=== PATIENT | male | born 2000 | race American Indian/Alaskan Native ===

== ENCOUNTER 2019-11-01 14:30 | Emergency (ER) | payer SELFPAY ==
[2019-11-01 14:41] VITALS: BP 132/81
--- NOTE | 2019-11-01 16:27 | Event Note ---
ED Screening Note ED Screening Note: sore throat that began a week ago states that it hurts to swallow no fever able to swallow spit went to [facility], was prescribed an abx but did not get it filled PMHx asthma, sickle cell trait allergy: penicillin-rash
--- NOTE | 2019-11-01 16:30 | Emergency Department Report ---
ED ENT HPI - General Chief complaint: Sore Throat Stated complaint: SOB/HEAD HURTING/CP Time Seen by Provider: 11/01/19 16:22 Source: patient Mode of arrival: Ambulatory Limitations: No Limitations - History of Present Illness Initial comments: pt is a 19 yo male who presents to the ED with c/o a sore throat that began a week ago. he states that it hurts to swallow. he denies any fever. he went to [facility], was prescribed an abx but did not get it filled, was prescribed clindamycin. he states he had a CT of the neck there which was normal. he states it was initially getting better but then his throat began hurting him again because he did not fill his abx. PMHx asthma, sickle cell trait. allergy: penicillin-rash - Related Data Previous Rx's Medication Instructions Recorded Last Taken Type Clindamycin [Clindamycin CAP] 450 mg PO TID 7 Days #63 capsule 11/01/19 Unknown Rx Allergies Allergy/AdvReac Type Severity Reaction Status Date / Time Penicillins Allergy Unknown Verified 11/01/19 14:37 ED Dental HPI - General Chief complaint: Sore Throat Stated complaint: SOB/HEAD HURTING/CP Time Seen by Provider: 11/01/19 16:22 Source: patient Mode of arrival: Ambulatory Limitations: No Limitations - Related Data Previous Rx's Medication Instructions Recorded Last Taken Type Clindamycin [Clindamycin CAP] 450 mg PO TID 7 Days #63 capsule 11/01/19 Unknown Rx Allergies Allergy/AdvReac Type Severity Reaction Status Date / Time Penicillins Allergy Unknown Verified 11/01/19 14:37 ED Review of Systems ROS: Stated complaint: SOB/HEAD HURTING/CP Other details as noted in HPI Comment: All other systems reviewed and negative ED Past Medical Hx - Past Medical History Previous Medical History?: No - Surgical History Past Surgical History?: No - Social History Smoking Status: Never Smoker Substance Use Type: Alcohol, Marijuana - Medications Home Medications: Home Medications Medication Instructions Recorded Confirmed Last Taken Type Clindamycin [Clindamycin CAP] 450 mg PO TID 7 Days #63 capsule 11/01/19 Unknown Rx ED Physical Exam - General Limitations: No Limitations General appearance: alert, in no apparent distress - Head Head exam: Present: atraumatic, normocephalic - Eye Eye exam: Present: normal appearance - ENT ENT exam: Present: mucous membranes moist, other (posterior oropharynx erythema with bilaterally tonsillar hypertrophy, no obvious exudate, no uvular edema, no deviation of the uvula, uvula is midline) - Respiratory Respiratory exam: Present: normal lung sounds bilaterally. Absent: respiratory distress, wheezes, rales, rhonchi, stridor, chest wall tenderness, accessory muscle use, decreased breath sounds, prolonged expiratory - Cardiovascular Cardiovascular Exam: Present: regular rate, normal rhythm, normal heart sounds. Absent: systolic murmur, diastolic murmur, rubs, gallop - Neurological Exam Neurological exam: Present: alert, oriented X3 - Psychiatric Psychiatric exam: Present: normal affect, normal mood - Skin Skin exam: Present: warm, dry, intact ED Course Vital Signs 11/01/19 14:38 Temperature 97.7 F Pulse Rate 85 Respiratory 16 Rate Blood Pressure 132/81 O2 Sat by Pulse 97 Oximetry ED Medical Decision Making - Medical Decision Making pt is a 19 yo male who presents to the ED with c/o a sore throat that began a week ago. he states that it hurts to swallow. he denies any fever. he went to [facility], was prescribed an abx but did not get it filled, was prescribed clindamycin. he states he had a CT of the neck there which was normal. he states it was initially getting better but then his throat began hurting him again because he did not fill his abx. PMHx asthma, sickle cell trait. allergy: penicillin-rash. vitals are normal. on exam: posterior oropharynx erythema with bilaterally tonsillar hypertrophy, no obvious exudate, no uvular edema, no deviation of the uvula, uvula is midline. Examination consistent with tonsillitis. given prescription for clindamycin. advised pt to please take medication as prescribed to completion. increase your water intake. may alternate tylenol and ibuprofen as needed for pain. do warm salt water gargles, may use over the counter throat spray. follow up with a primary care doctor in the next 2-3 days. return to the emergency room for any new or worsening symptoms. - Differential Diagnosis tonsillitis, strep throat, peritonsillar abscess, epiglottitis, sialoadenit Critical care attestation.: If time is entered above; I have spent that time in minutes in the direct care of this critically ill patient, excluding procedure time. ED Disposition Clinical Impression: Tonsillitis Disposition: DC-01 TO HOME OR SELFCARE Is pt being admited?: No Does the pt Need Aspirin: No Condition: Stable Instructions: Tonsillitis (ED) Additional Instructions: please take medication as prescribed to completion. increase your water intake. may alternate tylenol and ibuprofen as needed for pain. do warm salt water gargles, may use over the counter throat spray. follow up with a primary care doctor in the next 2-3 days. return to the emergency room for any new or worsening symptoms. Prescriptions: Clindamycin [Clindamycin CAP] 450 mg PO TID 7 Days #63 capsule Referrals: KATHERINE VILLANUEVA MD [Primary Care Provider] - 2-3 Days JARED HERNANDEZ MD [Staff Physician] - 2-3 Days [facility] [Outside] - 2-3 Days [facility] [Outside] - 2-3 Days Forms: Work/School Release Form(ED) Time of Disposition: 17:08 Print Language: JAPANESE
== END 2019-11-01 17:25 | disposition home or self-care (01) ==
LOC: ED 14:30
DX: J03.90 Acute tonsillitis, unspecified (principal); F12.10 Cannabis abuse, uncomplicated; Z88.0 Allergy status to penicillin; Z79.899 Other long term (current) drug therapy